=== PATIENT | female | born 2000 | race Caucasian/White ===

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

== ENCOUNTER 2020-06-17 18:20 | Emergency (ER) | payer MEDICAID ==
[~2020-06-17] VITALS: Ht 172.7 cm; Wt 122.7 kg
[~2020-06-17 18:20] MED LIST: PRENATAL COMPLE1 TAB PO
[2020-06-17 18:30] VITALS: BP 122/64; Ht 172.7 cm; Wt 122.7 kg
[2020-06-17 19:31] LABS: BASOPHILS 0.1 % (0-2); EOSINOPHILS 0.5 % (0-7); HEMATOCRIT 36.1 % (36.0-48.0); HEMOGLOBIN 12.1 g/dL (12-16); IMMATURE GRANULOCYTES 0.2 % (0-5); LYMPHOCYTES 25.9 % (15-50); MCH 28.7 pg (26.0-34.0); MCHC 33.5 g/dL (31.0-37.0); MCV 85.7 fL (80.0-100.0); MEAN PLATELET VOLUME 12.1 fL (7.4-10.4); MONOCYTES 5.8 % (2-11); NEUTROPHILS 67.5 % (40-80); RBC 4.21 10x6/uL (4.00-5.40); RDW 13.5 % (11.5-14.5); WBC 8.1 10x3/uL (4.8-10.8)
[2020-06-17 19:32] LABS: PLATELET COUNT 168 10x3/uL (130-400)
[2020-06-17 19:39] LABS: CALC OSMOLALITY 275 mosm/kg (275-300); CALCIUM 9.3 mg/dL (8.5-10.1); CARBON DIOXIDE 26.6 mmol/L (21.0-32.0); CHLORIDE - SERUM 102 mmol/L (98-107); CREATININE - SERUM 0.7 mg/dL (0.6-1.3); GLUCOSE 98 mg/dL (74-106); POTASSIUM - SERUM 3.4 mmol/L (3.5-5.1); SODIUM 139 mmol/L (136-145); UREA NITROGEN 6 mg/dL (7-18); eGFR NON AFRICAN AMERICAN > 90 mL/min (90-120)
[2020-06-17 20:08] LABS: ALBUMIN 3.4 g/dL (3.4-5.0); ALKALINE PHOSPHATASE 44 U/L (30-120); ALT (SGPT) 17 U/L (10-68); HCG - QUANTITATIVE (MATERNAL) 32204 mIU/mL; MAGNESIUM - SERUM 1.9 mg/dL (1.8-2.4); PROTEIN - SERUM 6.9 g/dL (6.4-8.2)
[2020-06-17 20:22] LABS: BACTERIA MODERATE HPF (NONE SEEN); BILIRUBIN NEGATIVE (NEGATIVE); KETONE NEGATIVE (NEGATIVE); NITRITE NEGATIVE (NEGATIVE); UROBILINOGEN NORMAL mg/dL (< 2); WHITE CELLS - URINE 25-50 HPF (0-4)
[2020-06-17] MEDS ORDERED: KEFLEX500 MG PO (21:02)
== END 2020-06-17 21:43 | disposition home or self-care (01) ==
LOC: D.ER 18:20
PROVIDERS: Emergency Medicine
DX: O23.42 Unspecified infection of urinary tract in pregnancy, second trimester (principal); Z3A.14 14 weeks gestation of pregnancy; E87.6 Hypokalemia; R10.30 Lower abdominal pain, unspecified

== ENCOUNTER 2020-12-02 14:37 | Inpatient (IN) | payer OTHER ==
[~2020-12-02] VITALS: Ht 172.7 cm; Wt 120.7 kg
[~2020-12-02 14:37] MED LIST changes: +KEFLEX500 MG PO
[2020-12-06] MEDS ORDERED: ERGOCALCIF50000 UNIT PO (22:11)
[2020-12-06 22:12] VITALS: BP 125/66; Ht 172.7 cm; Wt 120.7 kg
[2020-12-06 22:43] LABS: HEMATOCRIT 32.3 % (36.0-48.0); HEMOGLOBIN 10.5 g/dL (12-16); MCH 27.1 pg (26.0-34.0); MCHC 32.5 g/dL (31.0-37.0); MCV 83.5 fL (80.0-100.0); MEAN PLATELET VOLUME 12.8 fL (7.4-10.4); RBC 3.87 10x6/uL (4.00-5.40); RDW 15.9 % (11.5-14.5); WBC 8.1 10x3/uL (4.8-10.8)
[2020-12-06 22:48] LABS: UDS - AMPHET NEGATIVE QUAL (NEGATIVE); UDS - BARB NEGATIVE QUAL (NEGATIVE); UDS - BENZO NEGATIVE QUAL (NEGATIVE); UDS - COCAINE NEGATIVE QUAL (NEGATIVE); UDS - OPIATE NEGATIVE QUAL (NEGATIVE); UDS - PCP NEGATIVE QUAL (NEGATIVE); UDS - THC POSITIVE QUAL (NEGATIVE)
[2020-12-07 19:30] VITALS: BP 136/72
--- NOTE | 2020-12-07 19:30 | NUR ---
RN TO BEDSIDE. PT ABLE TO AMB TO BATHROOM WITH STANDBY ASSIST. PT VOIDED LARGE AMOUNT INTO COMMODE. PERIPADS AND MESH UNDERWEAR PROVIDED. SHIFT ASSESSMENT COMPLETED AT THIS TIME. SEE FLOWSHEET. PT TRANSFERRED TO ROOM 1221 VIA W/C AT THIS TIME.
--- NOTE | 2020-12-07 20:10 | NUR ---
PT RESTING IN BED, PT UP TO BR WITH ASSISTANCE, GAIT STEADY, VOIDED WITH NO DIFFICULTY, ASSISTED WITH MARIANA CARE, PT BACK TO BED, FRESH H20 SERVED, DENIES FURTHER NEEDS OR PAIN AT THIS TIME
--- NOTE | 2020-12-07 21:52 | NUR ---
PT CORPORATE DEVELOPMENT MANAGER LIGHT, C/O CRAMPING, ADM TYLENOL PER MD ORDERS, SEE EMAR WITH FRESH H20, DENIES FURTHER NEEDS, PT'S MOM HOLDING AT THIS TIME
--- NOTE | 2020-12-07 22:38 | NUR ---
PT GETTING READY FOR BED, ASSISTED PT'S MOM WITH RECLINER AND PROVIDED BEDDING, PT DENIES NEEDS OR PAIN AT THIS TIME
--- NOTE | 2020-12-08 00:23 | NUR ---
PT RESTING WITH EYES CLOSED, RESP QUIET, NO DISTRESS NOTED, LEFT UNDISTURBED AT THIS TIME, IN OPEN CRIB CART AND PT'S MOM ASLEEP AT BEDSIDE
--- NOTE | 2020-12-08 02:12 | NUR ---
PT AWAKE, CHANGING INFANTS DIAPER, PT REMOVED "URINE BAG" FROM , THIS RN TOOK IT TO THE NSY, PT DENIES NEEDS OR PAIN AT THIS TIME, PT'S MOM AT BEDSIDE
--- NOTE | 2020-12-08 04:28 | NUR ---
PT RESTING WITH EYES CLOSED, RESP QUIET, NO DISTRESS NOTED, LEFT UNDISTURBED AT THIS TIME, IN OPEN CRIB CART AND PT'S MOM ASLEEP AT BEDSIDE
--- NOTE | 2020-12-08 06:17 | NUR ---
PT GRAIN PACKER LIGHT, C/O CRAMPING, ADM TORADOL PO PER MD ORDERS WITH FRESH H20, PT DENIES FURTHER NEEDS, MOM ASLEEP AT BEDSIDE
--- NOTE | 2020-12-08 06:23 | NUR ---
INFANT TO ROOM VIA OPEN CRIB CART PER NSY NURSE
--- NOTE | 2020-12-08 07:00 | NUR ---
REPORT RECEIVED FROM Joseph ROMAN RN.
[2020-12-08 07:15] LABS: RAPID PLASMA REAGIN Non Reactive (Non Reactive)
--- NOTE | 2020-12-08 09:00 | NUR ---
TO ROOM FOR ASSESSMENT. PT AWAKE, SITTING UP IN BED. PT. MOTHER AT BEDSIDE WITH IN ARMS. INQUIRED ABOUT NEED FOR PAIN MEDICATION. PT. DENIES PAIN MEDS AT THIS TIME. NO OTHER NEEDS OR CONCERNS VOICED AT THIS TIME.
[2020-12-08 09:03] VITALS: BP 114/57
--- NOTE | 2020-12-08 10:34 | NUR ---
DR. CHAPPELL HERE TO SEE PT. ORDERS RECEIVED FOR CBC.
[2020-12-08 10:58] LABS: BASOPHILS 0.2 % (0-2); EOSINOPHILS 0.8 % (0-7); HEMATOCRIT 29.1 % (36.0-48.0); HEMOGLOBIN 9.4 g/dL (12-16); IMMATURE GRANULOCYTES 0.4 % (0-5); LYMPHOCYTE ABS# 1.95 10x3/uL (1.18-3.74); MCH 26.9 pg (26.0-34.0); MCHC 32.3 g/dL (31.0-37.0); MCV 83.1 fL (80.0-100.0); MEAN PLATELET VOLUME 12.9 fL (7.4-10.4); MONOCYTES 6.7 % (2-11); NEUTROPHIL ABS# 5.82 10x3/uL (1.56-6.13); NEUTROPHILS 68.9 % (40-80); PLATELET COUNT 159 10x3/uL (130-400); WBC 8.5 10x3/uL (4.8-10.8)
--- NOTE | 2020-12-08 11:30 | NUR ---
DR. CHAPPELL CALLED TO UNIT STATING SHE HAS VIEWED THE CBC RESULTS AND PATIENT MAY DISCHARGE TO HOME OR TO ROOMING IN IF BABY DOES NOT DISCHARGE TODAY.
--- NOTE | 2020-12-08 13:23 | NUR ---
IV D/C'D. CATHETER INTACT. DRESSING APPLIED. PT UP TO SHOWER.
--- NOTE | 2020-12-08 17:10 | NUR ---
REVIEWED DISHCARGE INSTRUCTIONS WITH PT. STATES UNDERSTANDING. FOLLOW UP APPOINTMENT WITH DR. CHAPPELL GIVEN FOR 01/18/21 @ 9:15. NO CONCERNS VOICED BY PATIENT.
--- NOTE | 2020-12-08 17:27 | NUR ---
PT DISCHARGED HOME VIA WHEELCHAIR TO PRIVATE VEHICLE.
== END 2020-12-08 17:29 | disposition home or self-care (01) | DRG 807 ==
LOC: D.SDCHOLD 12-06 14:30 → D.LD 12-06 22:04 → D.WS 12-06 22:04
PROVIDERS: Student in an Organized Health Care Education/Training Program; ADMIT Obstetrics & Gynecology; ATTEND Obstetrics & Gynecology
PROC: 10E0XZZ Delivery of Products of Conception, External Approach (ICD-10-PCS; principal; 2020-12-07)
DX: O80 Encounter for full-term uncomplicated delivery (principal); Z37.0 Single live birth; Z3A.39 39 weeks gestation of pregnancy